=== PATIENT | female | born 1995 | race Two or more races ===

== ENCOUNTER 2019-05-26 19:00 | Observation (INO) | payer MEDICAID ==
[~2019-05-26] VITALS: Ht 172.7 cm; Wt 95.3 kg
[2019-05-26] MEDS ORDERED: PREN-96 PO (20:07)
== END 2019-05-26 20:00 | disposition home or self-care (01) | DRG 566 ==
LOC: LDRP 19:00
PROVIDERS: ADMIT Obstetrics & Gynecology; ATTEND Obstetrics & Gynecology
DX: O00.01 Abdominal pregnancy with intrauterine pregnancy (principal); O42.92 Full-term premature rupture of membranes, unspecified as to length of time between rupture and onset of labor; O62.9 Abnormality of forces of labor, unspecified; Z3A.39 39 weeks gestation of pregnancy
CPT/HCPCS: 59025; 81002; G0378

== ENCOUNTER 2019-05-27 03:18 | Inpatient (IN) | payer MEDICAID ==
[~2019-05-27] VITALS: Ht 172.7 cm; Wt 95.3 kg
[~2019-05-27 03:18] MED LIST: PREN-96 PO
[2019-05-27] MEDS ORDERED: LACTATED RINGER'S 1,000 ML IV SCH (07:06)
[2019-05-27] MEDS ORDERED: LACT. RINGERS/OXYTOCIN 20UNITS 1,000 ML IV SCH ×2 (07:06→10:21)
[2019-05-27] MEDS ORDERED: LIDOCAINE 2%HCL (LOCAL ANESTH.) INJ 20ML MDV ID ONE (07:15)
[2019-05-27] MEDS ORDERED: CARBOPROST TROMETHAMINE 250 MCG/1ML VIAL IM PRN (07:15)
[2019-05-27] MEDS ORDERED: NALBUPHINE HCL 10 MG/1ml INJECTION IV PRN (07:15)
[2019-05-27] MEDS ORDERED: METHYLERGONOVINE MALEATE 0.2 MG/ML AMP IM PRN (07:15)
[2019-05-27] MEDS ORDERED: PENICILLIN G POT 5MIL/D5 50ML 50 ML IV ONE (07:30)
[2019-05-27 07:56] LABS: Basophils % (auto) 0.4 % (0.0-2.0); Eosinophils # (auto) 0 uL; Eosinophils % (auto) 0.2 % (0.0-7.0); Hemoglobin 11.2 g/dL (12.2-16.2); Monocytes # (auto) 0.7 uL; Red Blood Cells 4.21 10^6/uL (4.0-5.20); Red Cell Distribution Width 15.9 % (11.8-14.3)
[2019-05-27 07:56] LABS: Alcohol, Urine < 3.0 mg/dL (0-5); Amphetamine Screen, Urine NEGATIVE (NEGATIVE); Barbiturate Scree,Urine NEGATIVE (NEGATIVE); Benzodiazephine Screen, Urine NEGATIVE (NEGATIVE); Cannabinoid Screen, Urine NEGATIVE (NEGATIVE); Cocaine Screen, Urine NEGATIVE (NEGATIVE); Opiate Scree,Urine NEGATIVE (NEGATIVE); Phencyclidine Screen, Urine NEGATIVE (NEGATIVE)
[2019-05-27 07:57] LABS: Basophils # (auto) 0.1 uL; Hematocrit 34.8 % (36.0-46.0); Lymphocytes # (auto) 1.9 uL; Lymphocytes % (auto) 15.1 % (10.0-50.0); Mean Corpuscular Hemoglobin 26.5 pg (28.0-32.0); Mean Corpuscular Hgb Conc. 32.1 g/dL (32.0-36.0); Mean Corpuscular Volume 82.7 fL (80.0-100.0); Monocytes % (auto) 5.8 % (0.0-12.0); Neutrophils % (auto) 78.5 % (37.0-80.0); Nucleated Red Blood Cells % 0.1 %; Platelet Count (auto) 262 10^3/uL (140-450); White Blood Cell 12.8 10^3/uL (4.4-10.8)
[2019-05-27 08:17] LABS: Albumin 2.6 g/dL (3.4-5.0); Calcium 8.8 mg/dL (8.5-10.1); Potassium 3.8 mmol/L (3.5-5.1)
[2019-05-27 08:20] LABS: BUN/Creatinine Ratio 12.2; Bilirubin, Total 0.3 mg/dL (0.2-1.0); Total Protein 6.9 g/dL (6.4-8.2)
[2019-05-27 08:23] LABS: INR < 0.93 (0.9-1.15); Partial Thromboplastin Time 26.5 sec (23.64-32.05)
[2019-05-27] MEDS ORDERED: LIDOCAINE HCL 2 %PF INJ 10ML AMP IJ ONE (08:30)
[2019-05-27] MEDS ORDERED: fentaNYL CITRATE 100 MCG/2 ML VL IV ONE (08:30)
[2019-05-27] MEDS ORDERED: fentaNYL W ROPIVACAINE 150 ML EPI SCH (08:30)
[2019-05-27] MEDS ORDERED: DERMOPLAST 60ML BOTTLE TOP PRN (08:30)
[2019-05-27] MEDS ORDERED: ePHEDrine SULFATE 50 MG/ML AMP IV ONE ×2 (08:30→11:30)
[2019-05-27] MEDS ORDERED: WITCH HAZEL-GLYCERIN PAD TOP PRN (08:30)
[2019-05-27] MEDS ORDERED: PHISODERM TOP SOLN 240ML BTL TOP PRN (08:30)
[2019-05-27] MEDS ORDERED: NALOXONE HCL 0.4 MG/ML VIAL IV ONE ×2 (08:30→11:30)
[2019-05-27 08:38] LABS: Urine Bacteria FEW /hpf (None Seen); Urine Blood 2+ /uL (Negative); Urine Mucus FEW (None Seen); Urine Specific Gravity 1.012 (1.001-1.035); Urine WBC 21 /hpf (0 - 5)
[2019-05-27] MEDS ORDERED: TERBUTALINE SULFATE 1 MG/ML 1ML VIAL SC ONE (10:30)
[2019-05-27] MEDS ORDERED: PENICILLIN G POTASSIUM 2,500,000 UNITS in D5W 5% 50 ML IV SCH (11:30)
[2019-05-27] MEDS ORDERED: ACETAMINOPHEN 325 MG TAB PO PRN (16:15)
[2019-05-27] MEDS ORDERED: IBUPROFEN 600 MG TAB PO PRN (16:15)
--- NOTE | 2019-05-27 17:50 | NUR ---
Ambulation: Patient OOB with standby assistance by RN. Patient ambulated to bathroom with steady gait. Patient unable to void at this time. [facility] teaching provided with returned demonstration by patient. Clean gown provided and bed linen changed. Patient ambulated back to bed with steady gait and no distress noted.
[2019-05-27 19:00] VITALS: BP 125/73
--- NOTE | 2019-05-27 19:30 | NUR ---
First void Pt ambulates to br with steady gait, cesar care done by pt. 600ml urine output noted.
[2019-05-27] MEDS ORDERED: ceFAZolin 1GM/50ML 50 ML IV SCH (22:00)
[2019-05-27 23:00] VITALS: BP 105/59
[2019-05-28] MEDS: ceFAZolin 1GM/50ML 50 ML IV SCH ×2 (01:08→09:00)
[2019-05-28 03:00] VITALS: BP 132/73
[2019-05-28 06:08] LABS: RPR Non Reactive (Non Reactive)
--- NOTE | 2019-05-28 06:15 | NUR ---
Report received from BONG Colbert on stable pt. Assumed care of pt. Addendum: 05/28/19 at 0747 by Johana Kohli RN Amended: Links added.
[2019-05-28 06:39] VITALS: BP 114/63
[2019-05-28 11:30] VITALS: BP 109/60
[2019-05-28 15:17] VITALS: BP 115/69
--- NOTE | 2019-05-28 18:35 | NUR ---
Report given to Ashley Iglesias RN on stable pt. Relinquished care. Addendum: 05/28/19 at 1848 by Johana Kohli RN Amended: Links added.
[2019-05-28 19:00] VITALS: BP 120/71
[2019-05-28 22:45] VITALS: BP 119/83
[2019-05-29 02:49] VITALS: BP 96/54
--- NOTE | 2019-05-29 06:10 | NUR ---
Report received from BONG Iglesias on stable pt. Assumed care. Addendum: 05/29/19 at 0910 by Johana Kohli RN Amended: Links added.
[2019-05-29 07:04] VITALS: BP 116/58
--- NOTE | 2019-05-29 10:15 | NUR ---
Discharge: Discharge instructions given as ordered. Pt encouraged to follow up with [facility] as instructed. All questions and concerns addressed. Patient verbalized understanding. Medication reconciliation completed and copy given to patient. All required/requested vaccines given and copies of vaccinations given to patient. Patient encouraged to prepare to depart unit.
== END 2019-05-29 10:37 | disposition home or self-care (01) | DRG 560 ==
LOC: LDRP 03:18 → OBSVTOIN 03:18 → LDRP 09:16
PROVIDERS: ADMIT Obstetrics & Gynecology; ATTEND Obstetrics & Gynecology
PROC: 10D07Z6 Extraction of Products of Conception, Vacuum, Via Natural or Artificial Opening (ICD-10-PCS; principal; 2019-05-27)
PROC: 0W8NXZZ Division of Female Perineum, External Approach (ICD-10-PCS; 2019-05-27)
PROC: 0KQM0ZZ Repair Perineum Muscle, Open Approach (ICD-10-PCS; 2019-05-27)
PROC: 3E0R3BZ Introduction of Anesthetic Agent into Spinal Canal, Percutaneous Approach (ICD-10-PCS; 2019-05-27)
PROC: 00HU33Z Insertion of Infusion Device into Spinal Canal, Percutaneous Approach (ICD-10-PCS; 2019-05-27)
PROC: 3E0234Z Introduction of Serum, Toxoid and Vaccine into Muscle, Percutaneous Approach (ICD-10-PCS; 2019-05-28)
DX: O76 Abnormality in fetal heart rate and rhythm complicating labor and delivery (principal); O70.1 Second degree perineal laceration during delivery; Z37.0 Single live birth; Z3A.39 39 weeks gestation of pregnancy; Z22.330 Carrier of Group B streptococcus
CPT/HCPCS: 36415; 51702; 59025; 59409; 62282; 80053; 80307; 81001; 81002; 84112; 85025; 85610; 85730; 86592; 86850; 86870; 86900; 86901; 90384; 96372; G0378; J0690; J2540; J2590; J3010; J7060